=== PATIENT | female | born 1985 ===

== ENCOUNTER 2020-08-07 04:21 | Emergency (ER) | payer SELFPAY ==
[~2020-08-07] VITALS: Ht 157.5 cm; Wt 81.7 kg
--- NOTE | 2020-08-07 04:54 | PHYS DOC ---
Past History Past Medical History: Anxiety, Depression (VIVI FINK MD) General Adult EDM: Chief Complaint: SUBSTANCE ABUSE HPI: HPI: ".I took too much Clonazepam.. maybe 16 or so.... and six pack of beer... My boyfriend....broke up with me... ".." I got a broken heart.. ".. " Can you fix a fucking broken...heart.." Patient is a 34 year old female who presents with hx of overdose on clonazepam and alcohol. Patient recently had break-up with boyfriend., Patient mother states it was a suicide attempt. Patient does have a history of anxiety. Follow-up with . No recent travel. No severe ill contacts. 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 Mother [phone] has a history of depression and anxiety. Mother Advised this may be a suicidal attempt. (VIVI FINK MD) Review of Systems: Review of Systems: Constitutional: Denies fever or chills Eyes: Denies change in visual acuity HENT: Denies nasal congestion or sore throat Respiratory: Denies cough or shortness of breath Cardiovascular: Complains of chest pain . Complaints of emotionally a broken heart. GI: Denies abdominal pain, nausea, vomiting, bloody stools or diarrhea : Denies dysuria Musculoskeletal: Denies back pain or joint pain Integument: Denies rash Neurologic: Denies headache, focal weakness or sensory changes Endocrine: Denies polyuria or polydipsia Lymphatic: Denies swollen glands Psychiatric: Complains of depression, anxiety, complains of broken heart (VIVI FINK MD) Family History: Family History: Not currently available (VIVI FINK MD) Current Medications: Current Meds: See nursing for home meds (VIVI FINK MD) Allergies: Allergies: Has extraparametal reaction with promethazine (VIVI FINK MD) Physical Exam: PE: Constitutional: no acute distress, very sedated in appearance. [] HENT: Normocephalic, atraumatic, bilateral external ears normal, oropharynx moist, no oral exudates, nose normal. [] Eyes: PERRLA, EOMI, conjunctiva normal, no discharge. [] Neck: Normal range of motion, no tenderness, supple, no stridor. [] Cardiovascular tachycardia:Heart , regular rhythm, no murmur [] Lungs & Thorax: Bilateral breath sounds equal apex with scattered wheezes on auscultation [] Abdomen: Bowel sounds normal, soft, no tenderness, no masses, no pulsatile masses. Obese Skin: Warm, dry, no erythema, no rash. Tattoos Back: No tenderness, no CVA tenderness. [] Extremities: No tenderness, no cyanosis, no clubbing, ROM intact, no edema. [] Neurologic: Alert and oriented X 3, moves all extremities on request, does have distal sensory, no focal deficits noted. Appears extremely intoxicated or sedated with drugs Psychologic: Affect depressed, judgement impaired, mood depressed (VIVI FINK MD) Current Patient Data: Labs: Laboratory Tests Test 08/07/20 04:03 08/07/20 04:50 08/07/20 07:53 Bedside Urine HCG, Qualitative hcg negative White Blood Count 6.5 x10^3/uL Red Blood Count 4.99 x10^6/uL Hemoglobin 15.9 g/dL Hematocrit 46.0 % Mean Corpuscular Volume 92 fL Mean Corpuscular Hemoglobin 32 pg Mean Corpuscular Hemoglobin Concent 35 g/dL Red Cell Distribution Width 12.7 % Platelet Count 353 x10^3/uL Neutrophils (%) (Auto) 46 % Lymphocytes (%) (Auto) 48 % Monocytes (%) (Auto) 4 % Eosinophils (%) (Auto) 1 % Basophils (%) (Auto) 1 % Neutrophils # (Auto) 3.0 x10^3uL Lymphocytes # (Auto) 3.1 x10^3/uL Monocytes # (Auto) 0.3 x10^3/uL Eosinophils # (Auto) 0.0 x10^3/uL Basophils # (Auto) 0.0 x10^3/uL Prothrombin Time 9.5 SEC Prothromb Time International Ratio 0.9 Activated Partial Thromboplast Time 24 SEC Urine Collection Type Unknown Urine Color Colorless Urine Clarity Clear Urine pH 6.0 Urine Specific [place] <=1.005 Urine Protein Neg Urine Glucose (UA) Neg mg/dL Urine Ketones (Stick) Neg mg/dL Urine Blood Neg Urine Nitrite Neg Urine Bilirubin Neg Urine Urobilinogen Dipstick 0.2 mg/dL Urine Leukocyte Esterase Neg Urine RBC 0 /HPF Urine WBC 0 /HPF Urine Squamous Epithelial Cells Mod /LPF Urine Bacteria 0 /HPF Sodium Level 145 mmol/L Potassium Level 4.0 mmol/L Chloride Level 108 mmol/L Carbon Dioxide Level 22 mmol/L Anion Gap 15 Blood Urea Nitrogen 7 mg/dL Creatinine 0.8 mg/dL Estimated GFR (Cockcroft-Gault) 82.1 Glucose Level 124 mg/dL Calcium Level 9.0 mg/dL Magnesium Level 2.3 mg/dL Creatine Kinase 128 U/L Troponin I Quantitative < 0.017 ng/mL Salicylates Level 5.8 mg/dL Salicylate Last Dose Date 08/07/20 Salicylate Last Dose Time 0500 Urine Opiates Screen Neg Urine Methadone Screen Neg Acetaminophen Level < 2.0 mcg/mL Acetaminophen Last Dose Date 08/07/20 Acetaminophen Last Dose Time 0500 Urine Barbiturates Neg Urine Phencyclidine Screen Neg Urine Amphetamine/Methamphetamine Neg Urine Benzodiazepines Screen Neg Urine Cocaine Screen Neg Urine Cannabinoids Screen Neg Ethyl Alcohol Level 367 mg/dL 201 mg/dL Urine Ethyl Alcohol Pos Current Medications Medications (Trade) Dose Ordered Sig/Manuel Route PRN Reason Start Time Stop Time Status Last Admin Dose Admin Multivitamins/ Minerals 10 ml/ Folic Acid 1 mg/ Thiamine HCl 100 mg/Lactated Ringer's 1,011.3 ml @ 1,011.3 mls/hr 1X ONCE IV 08/07/20 05:30 08/07/20 06:29 DC 08/07/20 05:53 Lactated Ringer's 1,000 ml @ 1,000 mls/hr 1X ONCE IV 08/07/20 05:30 08/07/20 06:29 DC 08/07/20 06:26 Thiamine HCl (Thiamine Vial) 200 mg STK-MED ONCE IV 08/07/20 05:43 08/07/20 05:43 DC Thiamine HCl (Thiamine Vial) 200 mg STK-MED ONCE IV 08/07/20 05:44 08/07/20 05:44 DC Multivitamins/ Minerals (Infuvite Adult) 10 ml STK-MED ONCE IV 08/07/20 05:45 08/07/20 05:46 DC Vital Signs: Vital Signs Date Time Temp Pulse Resp B/P (MAP) Pulse Ox O2 Delivery O2 Flow Rate FiO2 08/07/20 06:28 120 93 08/07/20 04:58 96.3 93 18 135/87 (103) 92 Room Air 08/07/20 04:44 129 93 (CINDY MELGAR DO) EKG: EKG: My interpretation EKG shows a sinus tachycardia 126 bpm. No findings of acute morphology. Other than the tachycardia. [] (VIVI FINK MD) Radiology/Procedures: Radiology/Procedures: [] (VIVI FINK MD) Heart Score: HEART Score for Chest Pain: HEART Score for Chest Pain Response (Comments) Value History Slighlty/Non-Suspicious 0 ECG Nonspecific Repolarizatio 1 Age < 45 0 Risk Factors 1 or 2 Risk Factors 1 Troponin < Normal Limit 0 Total 2 Risk Factors: Risk Factors: DM, Current or recent (<one month) smoker, HTN, HLP, family history of CAD, obesity. Risk Scores: Score 0 - 3: 2.5% MACE over next 6 weeks - Discharge Home Score 4 - 6: 20.3% MACE over next 6 weeks - Admit for Clinical Observation Score 7 - 10: 72.7% MACE over next 6 weeks - Early Invasive Strategies (VIVI FINK MD) C/O Chest Pain: N/A (CINDY MELGAR DO) Course & Med Decision Making: Course & Med Decision Making Pertinent Labs and Imaging studies reviewed. (See chart for details) Discussed presentation test and treatment plan with Dr. Melgar he will make dispositon on pt. Impression: 1. Over dosage on ETOH and Clonazepam ( ETOH 367) 2. Hx. anxiety 3. Hx of depression [] (VIVI FINK MD) Course & Med Decision Making I assume complete care of patient after comprehensive signout by off going physician. I reviewed the chart and ER work-up thus far. I independently saw patient and perform my own history and physical exam. Remained acutely intoxicated, aggressive and violent towards myself and staff on arrival and remained in four-point physical restraints. Patient's clinical status improved as she sobered up [facility] team consulted, after evaluation of patient who now had full capacity they deemed patient not homicidal or suicidal. I agreed with this assessment. Joint decision among all to discharge home as patient lives with family and will be discharging back to their place of residence Strict return precautions were discussed with good understanding by patient, adequate resources were given on discharge per behavioral health specialty team. All questions and concerns addressed prior to ER departure in improved condition Electronically signed - Cindy Melgar DO (CINDY MELGAR DO) Katie Disclaimer: Dragon Disclaimer: This electronic medical record was generated, in whole or in part, using a voice recognition dictation system. (VIVI FINK MD) Departure Departure: Impression: Primary Impression: Alcohol intoxication delirium Disposition: 01 DC HOME SELF CARE/HOMELESS Condition: IMPROVED Referrals: PCP,NO (PCP) Patient Instructions: Alcohol Intoxication Additional Instructions: You were seen for alcohol intoxication. You should return to the ED if you develop any new or concerning symptoms. As abrupt cessation of alcohol can be fatal, you should refer to the resource sheet for help in stopping your addiction with help in a controlled environment. Dragon Disclaimer This chart was dictated in whole or in part using Voice Recognition software in a busy, high-work load, and often noisy Emergency Department environment. It may contain unintended and wholly unrecognized errors or omissions. (VIVI FINK MD) Dragon Disclaimer This chart was dictated in whole or in part using Voice Recognition software in a busy, high-work load, and often noisy Emergency Department environment. It may contain unintended and wholly unrecognized errors or omissions. (VIVI FINK MD) VIVI FINK MD Aug 07, 2020 04:54 CINDY MELGAR DO Aug 07, 2020 10:17
[2020-08-07 05:14] LABS: BASO % 1 % (0-3); EOS % 1 % (0-3); HEMOGLOBIN 15.9 g/dL (12.0-15.5); LYMPH # 3.1 x10^3/uL (1.0-4.8); LYMPH % 48 % (24-48); MEAN CORPUSCULAR HEMOGLOBIN 32 pg (25-35); MEAN CORPUSCULAR HGB CONC 35 g/dL (31-37); MEAN CORPUSCULAR VOLUME 92 fL (79-100); MONO # 0.3 x10^3/uL (0.0-1.1); MONO % 4 % (0-9); NEUT % 46 % (31-73); PLATELET COUNT 353 x10^3/uL (140-400); RED BLOOD COUNT 4.99 x10^6/uL (3.50-5.40); RED CELL DISTRIBUTION WIDTH 12.7 % (11.5-14.5); WHITE BLOOD COUNT 6.5 x10^3/uL (4.0-11.0)
[2020-08-07 05:26] LABS: BARBITURATES NEG (NEG); BENZODIAZEPINES NEG (NEG); CANNABINOIDS NEG (NEG); COCAINE NEG (NEG); METHADONE NEG (NEG); OPIATES NEG (NEG); PHENCYCLIDINE NEG (NEG)
[2020-08-07 05:27] LABS: AMPHETAMINE/METHAMPHETAMINE NEG (NEG)
[2020-08-07 05:28] LABS: CREATININE 0.8 mg/dL (0.6-1.0); GFR 82.1
[2020-08-07] MEDS ORDERED: IV RINGERS SOLUTION,LACTATED 1,000 ML IV ONE (05:30)
[2020-08-07] MEDS ORDERED: MVI, ADULT NO.4 WITH VIT K 10 ML, FOLIC ACID INJ 1 MG, THIAMINE INJ 100 MG in IV RINGER... IV ONE (05:30)
[2020-08-07 05:36] LABS: MAGNESIUM 2.3 mg/dL (1.8-2.4)
[2020-08-07 05:43] LABS: BILIRUBIN,URINE NEG (NEG); CLARITY,URINE CLEAR; COLOR,URINE COLORLESS; GLUCOSE,URINE NEG (NEG)
[2020-08-07] MEDS ORDERED: THIAMINE 200 MG/2 ML VIAL. IV ONE ×2 (05:43→05:44)
[2020-08-07 05:44] LABS: BACTERIA,URINE 0 /HPF (0-FEW); NITRITE,URINE NEG (NEG); RBC,URINE 0 /HPF (0-2); SQUAMOUS EPITHELIAL CELL,UR MOD /LPF; UROBILINOGEN,URINE 0.2 mg/dL (0.2 mg/dL); WBC,URINE 0 /HPF (0-4)
[2020-08-07] MEDS ORDERED: MVI, ADULT NO.4 WITH VIT K 10 ML VIAL IV ONE (05:45)
--- NOTE | 2020-08-07 06:02 | RAD ---
Chest AP portable at 0545: Reason for examination: Tachycardia. Heart size is normal. Mediastinum is unremarkable. Lung calderon are clear. No acute bony abnormalities are seen. IMPRESSION: No acute cardiopulmonary disease evident. Electronically signed by: Virgie Euceda MD (08/07/2020 6:00 AM) [place]
[2020-08-07 06:05] LABS: ACETAMIN < 2.0 mcg/mL (10-30); SALIC 5.8 mg/dL (2.8-20.0)
--- NOTE | 2020-08-07 06:19 | EKG ---
[facility] ED [facility] [address] [place] [id number] Test Date: 2020-08-07 Test Time: 04:27:04 Pat Name: TASIA DOYLE Department: Room: Gender: F [employer]: : 1985 Requested By: VIVI FINK Order Number: [id number] Reading MD: Measurements Intervals [place] Rate: 126 P: 246 [place]: 116 QRS: 13 QRSD: 72 T: 9 QT: 350 QTc: 507 Interpretive Statements SINUS TACHYCARDIA OTHERWISE NORMAL ECG RI6.02 No previous ECG available for comparison
[2020-08-07 06:28] VITALS: BP 116/68
== END 2020-08-07 10:29 | disposition home or self-care (01) ==
LOC: ER 04:21
DX: F10.121 Alcohol abuse with intoxication delirium (principal); Y90.8 Blood alcohol level of 240 mg/100 ml or more; R07.89 Other chest pain; R00.0 Tachycardia, unspecified; F32.9 Major depressive disorder, single episode, unspecified; F41.9 Anxiety disorder, unspecified
CPT/HCPCS: 36415; 51702; 71045; 80048; 80307; 80329; 81001; 81025; 82550; 83735; 84484; 85025; 85610; 85730; 93005; 96365; 99285; G0480; J7120